=== PATIENT | female | born 1945 | race Caucasian/White ===

== ENCOUNTER 2018-04-22 11:53 | Outpatient (CLI) | payer MEDICARE, BC, SELFPAY ==
--- NOTE | 2018-04-22 09:27 | DI.RAD_ITS ---
SYMPTOM/DIAGNOSIS: FELL ON BUTTOCK, PAIN,S30.OXXA SACRUM AND COCCYX No fracture is identified. The SI joints and pubic symphysis appear intact. IMPRESSION: Negative sacrum and coccyx.
== END 2018-04-22 12:13 ==
PROVIDERS: PCP Nurse Practitioner Family; Visit Provider Family Medicine
DX: M53.3 Sacrococcygeal disorders, not elsewhere classified (principal); S30.0XXA Contusion of lower back and pelvis, initial encounter
CPT/HCPCS: 72220

== ENCOUNTER 2018-05-03 01:55 | Outpatient (CLI) | payer MEDICARE, BC, SELFPAY ==
[2018-05-03 09:57] LABS: ALT 27 U/L (12-78); AST 16 U/L (15-37); Albumin 4.4 g/dL (3.4-5.0); Alkaline Phosphatase 130 U/L (46-116); Anion Gap 10.6 mmol/L (3-11); BUN 19 mg/dL (7-18); CO2 28.4 mmol/L (21.0-32.0); Calcium 9.8 mg/dL (8.5-10.1); Chloride 99 mmol/L (98-107); Cholesterol 271 mg/dL (50-200); Glucose 91 mg/dL (70-100); HDL Cholesterol 63 mg/dL (40-60); LDL CHOLESTEROL 176 mg/dL (<100); Potassium 4.5 mmol/L (3.5-5.1); Sodium 138 mmol/L (136-145); Total Protein 8.2 g/dL (6.4-8.2); Triglyceride 151 mg/dL (30-150)
[2018-05-03 10:52] LABS: Hemoglobin A1C 5.9 % (4.5-6.2)
== END 2018-05-03 02:15 ==
PROVIDERS: PCP Nurse Practitioner Family; Visit Provider Nurse Practitioner Family
DX: E78.5 Hyperlipidemia, unspecified (principal); R79.89 Other specified abnormal findings of blood chemistry
CPT/HCPCS: 36415; 80053; 80061; 83721; 83036

== ENCOUNTER 2018-06-02 00:27 | Outpatient (CLI) | payer MEDICARE, BC, SELFPAY ==
--- NOTE | 2018-06-02 07:30 | DI.US_ITS ---
SYMPTOM/DIAGNOSIS: SCREENING FOR AAA, Z13.6, QUESTIONABLE ABD BRUIT AORTA ULTRASOUND: The proximal aorta measures 2.1 by 2.2 cm. The mid abdominal aorta measures 2.3 by 2.3 cm. The distal abdominal aorta measures 1.5 by 2.1 cm. The right iliac measures 1.1 by 1 cm. The left iliac measures 1.3 by 0.9 cm. IMPRESSION: No evidence of an abdominal aortic aneurysm.
== END 2018-06-02 00:47 ==
PROVIDERS: PCP Nurse Practitioner Family; Visit Provider Nurse Practitioner Family
DX: Z13.6 Encounter for screening for cardiovascular disorders (principal)
CPT/HCPCS: 76706

== ENCOUNTER 2019-07-07 10:37 | Observation (INO) | payer MEDICARE, BC, SELFPAY ==
[2019-07-07] VITALS (34 sets, daily range): BP systolic 152–191; BP diastolic 68–91; PULSE 66–96; RESP 12–23; TEMP 36–37.1; O2SAT 97–100
--- NOTE | 2019-07-07 11:15 | DI.RAD_ITS ---
EXAM: XR PORTABLE CHEST AP CLINICAL HISTORY: palpitations, dizzy TECHNIQUE: 2D digital imaging was performed. COMPARISON: No exams were available for comparison FINDINGS: LUNGS: Clear. No pleural abnormality seen. HEART: Normal. MEDIASTINUM: Normal. OTHER FINDINGS: Degenerative changes in the spine. IMPRESSION: No acute pulmonary findings. DATA REPOSITORY: RADIATION DOSE DELIVERED:
[2019-07-07 11:27] LABS: Abs Immature Grans 0.01 k/cumm (0.0-0.09); Absolute Basophil Count 0.03 k/cumm (0.0-0.2); Absolute Eosinophil Count 0.06 k/cumm (0.0-0.7); Absolute Lymphocyte Count 2.15 k/cumm (1.2-3.4); Absolute Monocyte Count 0.56 k/cumm (0.11-0.7); Absolute Neutrophil Count 2.11 k/cumm (1.2-6.7); Basophils % 0.6; Eosinophils % 1.2; HCT 41.1 % (36.0-46.0); HGB 14.2 g/dL (12.0-15.5); Immature Grans % 0.2 %; Lymphocytes % 43.7; Mean Corp. HGB Concentration 34.5 g/dL (32.0-36.0); Mean Corpuscular Hemoglobin 30.7 pg (27.0-33.0); Monocytes % 11.4; Neutrophils % 42.9; Platelet Count 300 x1000/uL (130-400); RBC 4.62 m/cumm (4.00-5.20); RBC Distribution Width 12.2 % (11.7-14.6); White Blood Cell Count 4.92 k/cumm (4.4-10.8)
[2019-07-07] MEDS: Lactated Ringers 500 ML IV (11:41)
[2019-07-07 11:46] LABS: ALT 27 U/L (14-59); AST 19 U/L (15-37); Albumin 4.4 g/dL (3.4-5.0); Alkaline Phosphatase 120 U/L (46-116); Anion Gap 7.4 mmol/L (3-11); BUN 14 mg/dL (7-18); CO2 26.6 mmol/L (21.0-32.0); CREATININE 0.78 mg/dL (0.55-1.02); Calcium 9.6 mg/dL (8.5-10.1); Chloride 101 mmol/L (98-107); Glucose 114 mg/dL (74-106); Magnesium 2.1 mg/dL (1.8-2.4); Potassium 3.6 mmol/L (3.5-5.1); Sodium 135 mmol/L (136-145); TSH (W/Ref FT4) 2.69 uIU/mL (0.36-3.74); Total Protein 8.2 g/dL (6.4-8.2)
[2019-07-07 11:51] LABS: Troponin I < 0.05 ng/mL (<0.06)
[2019-07-07 11:59] LABS: D-Dimer 359 ng/mlFEU (<500)
--- NOTE | 2019-07-07 12:29 | ED.GENADUL_ITS ---
Discharge Plan Disposition Patient Disposition: [facility] INPATIENT Condition: Serious Discharge Details Chief Complaint: Chest Pain Clinical Impression: Hypertension, Anxiety, Palpitations Primary Care Provider: Gifty Zabala ED Provider: Avelino Shah Home Meds and New Rx's Prescriptions: No Action varicella-zoster gE-AS01B (PF) 50 mcg/0.5 mL suspension for reconstitution 0.5 ml IM ONCE Qty: 1 RF: 0 red yeast rice 600 mg capsule 600 mg PO DAILY RF: 0 meclizine [Motion Relief (meclizine)] 25 mg tablet 25 mg PO DAILY PRNRF: 0 coenzyme Q10 100 mg capsule 100 mg PO DAILY RF: 0 ivermectin [Soolantra] 30 GM cream 1 applic Topical HS Qty: 30 RF: 0 Medical Decision Making 74-year-old female with history of hyperlipidemia presents with palpitations that occurred earlier today and now resolved, hypertensive, saturating well in no respiratory distress. Patient also had episode yesterday of severe lightheadedness with associated nausea that lasted approximately 2 hours. Concern for intermittent arrhythmia. Screening ECG was reviewed and interpreted by me: Normal sinus rhythm 80 bpm, normal axis, subtle ST depressions are noted lead V3 to V6. No signs of hypertrophic cardiomyopathy, hokum, or WPW. I was able to obtain prior ECG from 08/21/[address] segments. Screening labs reviewed and nondiagnostic. A d-dimer was sent as patient is low risk by Wells criteria and noted to be normal. Screening chest x-ray was reviewed and interpreted by radiology: Normal. 13:11 I called and spoke with Dr. Meadows and discussed ED presentation and course including review of diagnostics and my concern for potential arrhythmia. She will admit the patient to telemetry. Care transition to Dr. Meadows. --Patient's son called back the emergency department - he raises concern for potential anxiety attack and related to life stressors including the fact that he is moving to [place]. HPI General Mode of arrival: ambulatory . Date/Time Provider Initiated Documentation: 07/07/19 10:50 . Limitations to Documentation: no limitations . Information obtained by: patient . HPI Narrative: 74-year-old female with history of hyperlipidemia presents with chief complaint of palpitations. Patient notes palpitations started today suddenly around 9:50 AM and lasted approximately 30 minutes. Palpitations were severe, described as strong pounding, these occurred at rest, no modifiers. Palpitations improved after approximately 30 minutes and she does not currently have palpitations although she continues to feel somewhat anxious. She notes that she checked her blood pressure during episode of blood pressure was elevated with a systolic in the 180s. Her blood pressures typically in normal range. Patient also notes yesterday around 230 she had sudden onset of dizziness, lightheadedness, and nausea. This episode occurred at rest and lasted approximately 2 hours then resolved. She notes that she felt off last night. She currently is no chest pain. No shortness of breath. No leg swelling. She has had some ongoing intermittent discomfort in her left posterior calf. She does not currently have pain in her calf. Related Data Home Medications Medication Instructions Recorded Confirmed ivermectin [Soolantra] 1 applic TOPICAL HS #30 gm 04/11/15 07/07/19 varicella-zoster gE-AS01B (PF) 50 0.5 ml IM ONCE #1 each 05/20/18 07/07/19 mcg/0.5 mL IM susp, kit red yeast rice 600 mg capsule 600 mg PO DAILY 06/06/18 07/07/19 meclizine 25 mg tablet 25 mg PO DAILY PRN 06/29/18 07/07/19 coenzyme Q10 100 mg capsule 100 mg PO DAILY 07/07/18 07/07/19 Previous Rx's Medication Instructions Recorded varicella-zoster gE-AS01B (PF) 50 0.5 ml IM ONCE #1 each 05/20/18 mcg/0.5 mL IM susp, kit Allergies Allergy/AdvReac Type Severity Reaction Status Date / Time Penicillins Allergy Unknown Verified 07/07/19 10:49 scallops Allergy Unknown Verified 07/07/19 10:49 Sulfa (Sulfonamide Allergy Unknown HIVES Verified 07/07/19 10:49 Antibiotics) oxycodone AdvReac Severe GI UPSET Verified 07/07/19 10:49 General Stated Complaint: Chest Pain INGA: 3 Review of Systems All systems reviewed & are unremarkable except as noted in HPI and below Constitutional Constitutional: Denies fever(s) Cardiovascular Cardiovascular: Reports as per HPI Respiratory Respiratory: Denies cough [facility] Medical History BPPV (benign paroxysmal positional vertigo) (Acute) Hyperlipidemia (Chronic) Impingement syndrome, shoulder, left (Resolved) Panic attacks (Inactive 04/11/15) Pelvic prolapse (Inactive) Prediabetes (Chronic ~04/2018) Raynauds syndrome (Inactive 03/30/13) Rosacea (Inactive) Tubular adenoma of colon (Inactive ~2012) Surgical History Appendectomy (Inactive ~1962) History of pelvic surgery (Inactive ~1962) Presacral Neurectomy for dysmenorrhea as a teenager S/P arthroscopy of left shoulder (Inactive 09/19/02) S/P lumpectomy, right breast (Inactive 09/18/98) S/P SARTHAK-BSO (total abdominal hysterectomy and bilateral salpingo-oophorectomy) (Inactive 08/16/90) For menorrhagia S/P tonsillectomy (Inactive ~1949) Family History Mother , at 86 Lupus Rheumatoid arthritis Essential hypertension Hyperlipidemia Type 2 diabetes mellitus Heart disease Father , at 84 Heart disease Stroke Prostate cancer Sister Heart disease Son No problems noted. Daughter , at age 46 of brain aneurysm Essential hypertension Hyperlipidemia MS (multiple sclerosis) Brain aneurysm Maternal Grandfather , at 82 Hyperlipidemia Essential hypertension Maternal Grandmother , at 44 No problems noted. Paternal Grandfather , at 84 Type 2 diabetes mellitus Essential hypertension Hyperlipidemia Paternal Grandmother , at 86 Heart disease Essential hypertension Social History Smoking/Tobacco Use Status: Never Second Hand Exposure: Yes Alcohol Intake: current Alcohol Intake frequency: a few times a week Alcohol type: beer and wine Drug use: Never Substance use type: does not use Caregiver/Support person: No Household members: spouse Housing: house Communication Needs: None Do you need help understanding health information?: Rarely Pets and animals: Yes Pets and animals: cat(s) Sexually active: Yes Do you think of yourself as: straight/heterosexual Current gender identity: female What is your relationship status?: How often do you talk on the phone with friends or family?: twice per week How often do you get together with friends or relatives?: once per week How often do you attend bahai or adventist services?: 4 or more times per year Do you belong to any clubs or organized social groups?: yes Panel score (0-1 are the most socially isolated patients): 4 What type of physical activity do you participate in: other Details: Senior Exercise group Duration: 45-60 minutes/day Frequency: 1-2 times per week Vita/Christianity: Mormonism Special vita needs: No Seatbelt use: always Helmet use: Yes Helmet use: always Drive intox or ride w/intox jeep driver: No Do you feel safe in your relationship?: Yes Female Reproductive History Menstrual Menopause type: surgical History History 2 Para 2 Hx # Term Pregnancies Multiple births Hx # Pregnancies Ectopic pregnancies AB induced Hx Number of Living Children 1 AB spontaneous Exam Const General: cooperative HENMT Mouth: moist mucous membranes Eyes Conjunctivae: normal conjunctivae Sclera: normal sclerae Neck Neck: trachea midline and supple Resp Auscultation: clear to auscultation bilaterally, no rales, no rhonchi and no wheezes Cardio Jugular venous pressure: no JVD Rate: regular rate and not tachycardic Rhythm: regular rhythm GI Palpation: soft, not firm, no guarding, no masses, not rigid and nontender Skin General skin exam: no rashes or lesions noted Neuro General: patient alert, patient awake, patient oriented x3 and tone normal Extrem General: no edema Psych Appearance: grossly normal Mental Status: mental status grossly normal Speech and Movement: speech and movement normal Course Vital Signs Vital signs: Vital Signs Temperature 37.1 C 07/07/19 10:43 Pulse 83 07/07/19 10:43 Blood Pressure 191/90 H 07/07/19 10:43 Pulse Oximetry 99 07/07/19 10:43 Temperature 37.1 C 07/07/19 10:43 Temperature Source Temporal Artery Scan 07/07/19 10:43 Pulse 83 07/07/19 10:43 Respiratory Rate 18 07/07/19 11:08 Respiratory Effort Non-Labored 07/07/19 11:08 Respiratory Depth Normal 07/07/19 11:08 Respiratory Pattern Normal 07/07/19 11:08 Blood Pressure 191/90 H 07/07/19 10:43 Blood Pressure Position Supine 07/07/19 10:43 Pulse Oximetry 99 07/07/19 10:43 Oxygen Delivery Method Room Air 07/07/19 10:43 Oxygen Flow Rate 0 07/07/19 10:43 Pain Level 2 07/07/19 10:43 Lab/Test Results Lab/Test Results: Laboratory Tests Range/Units 07/07/19 07/07/19 07/07/19 11:00 11:00 11:00 WBC (4.4-10.8) k/cumm 4.92 RBC (4.00-5.20) m/cumm 4.62 Hgb (12.0-15.5) g/dL 14.2 Hct (36.0-46.0) % 41.1 MCV (80-95) fL 89.0 MCH (27.0-33.0) pg 30.7 MCHC (32.0-36.0) g/dL 34.5 RDW (11.7-14.6) % 12.2 Plt Count (130-400) x1000/uL 300 MPV (8.0-11.0) fL 10.0 Immature Gran % % 0.2 Neutrophils % 42.9 Lymphocytes % 43.7 Monocytes % 11.4 Eosinophils % 1.2 Basophils % 0.6 Absolute Neutrophils (1.2-6.7) k/cumm 2.11 Absolute Lymphocytes (1.2-3.4) k/cumm 2.15 Absolute Monocytes (0.11-0.7) k/cumm 0.56 Absolute Eosinophils (0.0-0.7) k/cumm 0.06 Absolute Basophils (0.0-0.2) k/cumm 0.03 D-Dimer (<500) ng/mlFEU 359 Sodium (136-145) mmol/L 135 L Potassium (3.5-5.1) mmol/L 3.6 Chloride (98-107) mmol/L 101 Carbon Dioxide (21.0-32.0) mmol/L 26.6 Anion Gap (3-11) mmol/L 7.4 BUN (7-18) mg/dL 14 Creatinine (0.55-1.02) mg/dL 0.78 Estimated GFR/1.73 m2 (mL/min/1.73m2) >= 60.00 Glucose (74-106) mg/dL 114 H Calcium (8.5-10.1) mg/dL 9.6 Magnesium (1.8-2.4) mg/dL 2.1 Total Bilirubin (0.2-1.0) mg/dL 1.0 AST (15-37) U/L 19 ALT (14-59) U/L 27 Alkaline Phosphatase (46-116) U/L 120 H Troponin I (<0.06) ng/mL < 0.05 Total Protein (6.4-8.2) g/dL 8.2 Albumin (3.4-5.0) g/dL 4.4 TSH (0.36-3.74) uIU/mL 2.69
[2019-07-07] MEDS: Normal Saline 1,000 ML 125 ML IV ×2 (12:48→21:05)
--- NOTE | 2019-07-07 13:37 | PDOC.ERCMIN ---
- If Service Date Differs Date of service: 07/07/19 Time of Service: 13:38 Care Management Initial Assess REASON FOR HOSPITALIZATION:: Hypertension, anxiety, and palpitations. PAST MEDICAL HISTORY/PAST SURGICAL HISTORY:: Medical History: BPPV (benign paroxysmal positional vertigo), Hyperlipidemia, Impingement syndrome, shoulder, left, Panic attacks, Pelvic prolapse, Prediabetes, Raynauds syndrome, Rosacea, and Tubular adenoma of colon. Surgical History: Appendectomy, History of pelvic surgery - Presacral Neurectomy for dysmenorrhea as a teenager, S/P arthroscopy of left shoulder,. S/P lumpectomy, right breast, S/P SARTHAK-BSO (total abdominal hysterectomy and bilateral salpingo-oophorectomy) - For menorrhagia, and S/P tonsillectomy. PREVIOUS FUNCTIONAL STATUS/SOCIAL/FAMILY SUPPORTS:: Lorri is a pleasant 74 year old female who resides in [place] with Richi, her of 53 years. 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 Their son, Richi Martin, is a source of support for the couple, but he resides in [place], [place] (tel. # [phone]). Lorri shares her was diagnosed with parkinsons in July of last year. She goes on to say the two of them are enjoying their usp years together. Lorri drives and is independent at baseline. CURRENT FUNCTIONAL STATUS:: Lorri is lying in bed in the emergency room when CM meets with her today. She is pleasant and easily engages in conversation. She expresses some concerns over her being home alone. A plan is made for her to outreach to a neighbor who can look in on him while she is at the hospital. CM will continue to follow. ADVANCE DIRECTIVES:: On file; Richi Mcdonald Sr is listed as agent. Has patient been provided with information about the portal?: Yes Did the patient sign up for the portal?: Yes (Previously enrolled) CODE STATUS:: Full Code INSURANCE COVERAGE / FINANCIAL ISSUES:: BCBS and Medicare. CURRENT HOME/COMMUNITY SERVICES/EQUIPMENT:: None. Lorri is independent at baseline. PRIMARY CARE PHYSICIAN:: EVELIN Iniguez ([facility]) POTENTIAL DISCHARGE NEEDS:: Follow up appointment with PCP. PATIENT/FAMILY EDUCATION NEEDS:: Discharge instructions, limitations, follow-up plan, including Ask Me Three and self-management. ANTICIPATED BARRIERS TO DISCHARGE:: No anticipated barriers at this time. TRANSPORTATION:: Via private vehicle with family. PLAN:: Anticipate Lorri will discharge home with no new services when medically cleared by provider. She will follow-up with her plan of care as prescribed. Her will transport her home via private vehicle when ready. CM will continue to follow.
[2019-07-07] MEDS: Enoxaparin 40 MG/0.4 ML SYR SC (15:08)
--- NOTE | 2019-07-07 15:34 | HPE_ITS ---
Date of service: 07/07/19 Time of Service: 15:34 Assessment and Plan Assessment and plan (1) Palpitations: Status: Acute Assessment and plan: refer to observation on telemetry, repeat troponin. unlikely ACS, no dysrhythmia noted while in ED. no electrolyte abnormality. has history of anxiety and has multiple current stressors. (2) Hypertension: Status: Chronic Assessment and plan: will monitor at this time. case discussed with Dr Meadows who is in agreement with plan History of Present Illness History of Present Illness Chief Complaint: palpitations Narrative: This is a 74-year-old female with history of hyperlipidemia presents with chief complaint of palpitations. Patient notes palpitations started today suddenly around 9:50 AM and lasted approximately 30 minutes. Palpitations were severe, described as strong pounding, these occurred at rest, no modifiers. Palpitations improved after approximately 30 minutes and she does not currently have palpitations although she continues to feel somewhat anxious. She notes that she checked her blood pressure during episode of blood pressure was elevated with a systolic in the 180s. She also reports yesterday around 230 she had sudden onset of dizziness, lightheadedness, and nausea. This episode occurred at rest and lasted approximately 2 hours then resolved. She notes that she felt off last night. She currently is no chest pain. No shortness of breath. No leg swelling. She has had some ongoing intermittent discomfort in her left posterior calf. She does not currently have pain in her calf. work up in the ED showed EKG in sinus rhythm with no evidence of ischemia, negative labs including troponin, d-dimer and electrolytes and CXR. she will be referred to observation on telemetry to trend troponin and cardiac monitoring. Review of Systems Constitutional Constitutional: Reports as per HPI, Reports system reviewed and no additional co mplaints, except as documented and Denies headache(s) ENT Ears, Nose, Mouth, and Throat: Denies vertigo and Denies headache(s) Cardiovascular Cardiovascular: Denies chest pain with activity, Reports rapid heart rate, Denies leg edema, Reports lightheadedness and Reports palpitations Respiratory Respiratory: Denies chest congestion and Denies cough Gastrointestinal Gastrointestinal: Denies abdominal pain, Denies nausea and Denies vomiting Musculoskeletal Musculoskeletal: Denies myalgias and Denies radiating pain into limb Neurologic Neurologic: Denies vertigo and Denies headache(s) Psychiatric Psychiatric: Reports anxiety Endocrine Endocrine: Reports palpitations PFSH Medical History BPPV (benign paroxysmal positional vertigo) (Acute) Hyperlipidemia (Chronic) Impingement syndrome, shoulder, left (Resolved) Panic attacks (Inactive 04/11/15) Pelvic prolapse (Inactive) Prediabetes (Chronic ~04/2018) Raynauds syndrome (Inactive 03/30/13) Rosacea (Inactive) Tubular adenoma of colon (Inactive ~2012) Surgical History Appendectomy (Inactive ~1962) History of pelvic surgery (Inactive ~1962) Presacral Neurectomy for dysmenorrhea as a teenager S/P arthroscopy of left shoulder (Inactive 09/19/02) S/P lumpectomy, right breast (Inactive 09/18/98) S/P SARTHAK-BSO (total abdominal hysterectomy and bilateral salpingo-oophorectomy) (Inactive 08/16/90) For menorrhagia S/P tonsillectomy (Inactive ~1949) Family History Mother , at 86 Lupus Rheumatoid arthritis Essential hypertension Hyperlipidemia Type 2 diabetes mellitus Heart disease Father , at 84 Heart disease Stroke Prostate cancer Sister Heart disease Son No problems noted. Daughter , at age 46 of brain aneurysm Essential hypertension Hyperlipidemia MS (multiple sclerosis) Brain aneurysm Maternal Grandfather , at 82 Hyperlipidemia Essential hypertension Maternal Grandmother , at 44 No problems noted. Paternal Grandfather , at 84 Type 2 diabetes mellitus Essential hypertension Hyperlipidemia Paternal Grandmother , at 86 Heart disease Essential hypertension Social History Smoking/Tobacco Use Status: Never Second Hand Exposure: Yes Alcohol Intake: current Alcohol Intake frequency: a few times a week Alcohol type: beer and wine Drug use: Never Substance use type: does not use Caregiver/Support person: No Household members: spouse Housing: house Communication Needs: None Do you need help understanding health information?: Rarely Pets and animals: Yes Pets and animals: cat(s) Sexually active: Yes Do you think of yourself as: straight/heterosexual Current gender identity: female What is your relationship status?: How often do you talk on the phone with friends or family?: twice per week How often do you get together with friends or relatives?: once per week How often do you attend gnosticist or anglican services?: 4 or more times per year Do you belong to any clubs or organized social groups?: yes Panel score (0-1 are the most socially isolated patients): 4 What type of physical activity do you participate in: other Details: Senior Exercise group Duration: 45-60 minutes/day Frequency: 1-2 times per week Vita/Quaker: Restorationism Special vita needs: No Seatbelt use: always Helmet use: Yes Helmet use: always Drive intox or ride w/intox local company truck driver: No Do you feel safe in your relationship?: Yes Female Reproductive History Menstrual Menopause type: surgical History History 2 Para 2 Hx # Term Pregnancies Multiple births Hx # Pregnancies Ectopic pregnancies AB induced Hx Number of Living Children 1 AB spontaneous Meds Home Medications and Allergies Home Medications Medication Instructions Recorded Confirmed Type ivermectin [Soolantra] 1 applic TOPICAL HS #30 gm 04/11/15 07/07/19 History varicella-zoster gE-AS01B (PF) 50 0.5 ml IM ONCE #1 each 05/20/18 07/07/19 Rx mcg/0.5 mL IM susp, kit red yeast rice 600 mg capsule 600 mg PO DAILY 06/06/18 07/07/19 History meclizine 25 mg tablet 25 mg PO DAILY PRN 06/29/18 07/07/19 History coenzyme Q10 100 mg capsule 100 mg PO DAILY 07/07/18 07/07/19 History Allergies Allergy/AdvReac Type Severity Reaction Status Date / Time Penicillins Allergy Unknown Verified 07/07/19 10:49 scallops Allergy Unknown Verified 07/07/19 10:49 Sulfa (Sulfonamide Allergy Unknown HIVES Verified 07/07/19 10:49 Antibiotics) oxycodone AdvReac Severe GI UPSET Verified 07/07/19 10:49 Exam Const General: cooperative, healthy appearing, comfortable, no acute distress and well developed Nutritional Appearance: average body habitus Orientation: alert, awake and oriented x3 HENMT Head: normal to inspection, normocephalic and atraumatic Mouth: oral mucosae normal Resp Effort & Inspection: normal respiratory effort Auscultation: clear to auscultation bilaterally Cardio Rate: regular rate Rhythm: regular rhythm Heart Sounds: no murmurs GI Inspection: normal to inspection Palpation: soft Auscultation: normal bowel sounds Skin General skin exam: no rashes or lesions noted Neuro General: patient alert, patient awake and patient oriented x3 Cranial Nerves: CN's II-XI intact bilaterally Extrem General: normal to inspection, full ROM and no pedal edema Psych Appearance: grossly normal Mental Status: mental status grossly normal Speech and Movement: speech and movement normal Mood: congruent mood Affect: normal affect Attitude: cooperative Thought Process: normal Thought Content: normal Insight: insight good Judgment: judgment good Results Labs Result diagrams: 07/07/19 11:00 07/07/19 11:00 Labs: Laboratory Results - last 24 hr 07/07/19 07/07/19 07/07/19 11:00 11:00 11:00 WBC 4.92 RBC 4.62 Hgb 14.2 Hct 41.1 MCV 89.0 MCH 30.7 MCHC 34.5 RDW 12.2 Plt Count 300 MPV 10.0 Immature Gran % 0.2 Neutrophils % 42.9 Lymphocytes % 43.7 Monocytes % 11.4 Eosinophils % 1.2 Basophils % 0.6 Absolute Neutrophils 2.11 Absolute Lymphocytes 2.15 Absolute Monocytes 0.56 Absolute Eosinophils 0.06 Absolute Basophils 0.03 D-Dimer 359 Sodium 135 L Potassium 3.6 Chloride 101 Carbon Dioxide 26.6 Anion Gap 7.4 BUN 14 Creatinine 0.78 Estimated GFR/1.73 m2 >= 60.00 Glucose 114 H Calcium 9.6 Magnesium 2.1 Total Bilirubin 1.0 AST 19 ALT 27 Alkaline Phosphatase 120 H Troponin I < 0.05 Total Protein 8.2 Albumin 4.4 TSH 2.69 Last Vital Signs Temp 36.0 C L 07/07/19 14:30 Pulse 66 07/07/19 14:30 Resp 18 07/07/19 14:30 BP 167/76 H 07/07/19 14:30 Pulse Ox 100 07/07/19 14:30 COVID-19 Screening In the past 14 days, have you traveled outside of [place] or [place]?: NO Had IN PERSON contact w/suspected or confirmed C-19 person: No
[2019-07-07 16:07] LABS: Troponin I < 0.05 ng/mL (<0.06)
[2019-07-07 22:33] LABS: Troponin I < 0.05 ng/mL (<0.06)
[2019-07-08 00:10] VITALS: BP 120/73; PULSE 73; RESP 16; TEMP 36.5; O2SAT 98
[2019-07-08 03:35] VITALS: BP 118/70; PULSE 65; RESP 17; TEMP 36.5; O2SAT 98
[2019-07-08] MEDS: Normal Saline 1,000 ML 125 ML IV (04:45)
[2019-07-08] MEDS: Normal Saline Flush 10 ML SYR IVP (04:45)
[2019-07-08 06:42] LABS: COVID-19 RT-PCR UVMMC Result Negative (Negative)
[2019-07-08 07:35] VITALS: BP 163/78; PULSE 65; RESP 15; TEMP 36.8; O2SAT 92
[2019-07-08 07:59] LABS: HCT 39.9 % (36.0-46.0); HGB 13.6 g/dL (12.0-15.5); Mean Corp. HGB Concentration 34.1 g/dL (32.0-36.0); Mean Corpuscular Hemoglobin 30.8 pg (27.0-33.0); Mean Corpuscular Volume 90.5 fL (80-95); Mean Platelet Volume 10.2 fL (8.0-11.0); Platelet Count 261 x1000/uL (130-400); RBC 4.41 m/cumm (4.00-5.20); RBC Distribution Width 12.3 % (11.7-14.6); White Blood Cell Count 4.06 k/cumm (4.4-10.8)
[2019-07-08 08:13] LABS: Anion Gap 6.2 mmol/L (3-11); BUN 12 mg/dL (7-18); CO2 26.8 mmol/L (21.0-32.0); CREATININE 0.73 mg/dL (0.55-1.02); Calcium 8.8 mg/dL (8.5-10.1); Calculated LDL 142 mg/dL (<100); Chloride 105 mmol/L (98-107); Cholesterol 214 mg/dL (<200); Glucose 95 mg/dL (74-106); HDL Cholesterol 62 mg/dL (40-60); Potassium 3.7 mmol/L (3.5-5.1); Sodium 138 mmol/L (136-145); Triglyceride 52 mg/dL (<150)
--- NOTE | 2019-07-08 09:26 | PDOC.CMDIS ---
LACE Index Scoring Tool - Questions: Length of Stay (in days): 1 Acuity (Admit via E.D.?): Yes Comorbidities: Any Tumor E.D. Visits: 1 - Answers: Total Score: 7 Risk of Readmission: Low Risk Care Management Discharge Reason for Hospitalization: Hypertension, anxiety, and palpitations. Discharge Plan: Lorri will discharge home when ready per MD. She will transport via private vehicle with family. She will follow up with her PCP and plan of care as prescribed, including instructions for heart monitor placed by RT per MD order. Patient/Family Education Needs: Review discharge instructions, discuss Ask Me Three.
--- NOTE | 2019-07-08 09:39 | W.PM.DS.N ---
Date of service: 07/08/19 Time of Service: 09:39 DS: Diagnosis Discharge Diagnosis (1) Palpitations: Status: Acute (2) Hypertension: Status: Chronic Discharge Plan Disposition Patient Disposition: HOME Condition: Good Discharge Details Chief Complaint: Chest Pain Clinical Impression: Hypertension, Anxiety, Palpitations Reason For Visit: PALPITATIONS,HYPERTENSIVE URGENCY Admit Date/Time: 07/07/19 13:01 Admit Provider: Sofy Meadows Attending Provider: Sofy Meadows Primary Care Provider: Gifty Zabala ED Provider: Avelino Shah Hospital Course Hospital Course: This is a 74-year-old female with history of hyperlipidemia presents with chief complaint of palpitations. Patient notes palpitations started today suddenly around 9:50 AM and lasted approximately 30 minutes. Palpitations were severe, described as strong pounding, these occurred at rest, no modifiers. Palpitations improved after approximately 30 minutes and she does not currently have palpitations although she continues to feel somewhat anxious. She notes that she checked her blood pressure during episode of blood pressure was elevated with a systolic in the 180s. She also reports yesterday around 230 she had sudden onset of dizziness, lightheadedness, and nausea. This episode occurred at rest and lasted approximately 2 hours then resolved. She notes that she felt off last night. She currently is no chest pain. No shortness of breath. No leg swelling. She has had some ongoing intermittent discomfort in her left posterior calf. She does not currently have pain in her calf. work up in the ED showed EKG in sinus rhythm with no evidence of ischemia, negative labs including troponin, d-dimer and electrolytes and CXR. she was referred to observation on telemetry to trend troponin and cardiac monitoring. overnight she rested comfortably. no further symptoms. remained in sinus rhythm with no ectopy. she will be discharged to home on an event monitor. she should follow up with pcp regarding further outpatient work up and monitor of blood pressure. Home Meds and New Rx's Prescriptions: Continued varicella-zoster [id number] (PF) 50 mcg/0.5 mL suspension for reconstitution 0.5 ml IM ONCE Qty: 1 RF: 0 red yeast rice 600 mg capsule 600 mg PO DAILY RF: 0 meclizine [Motion Relief (meclizine)] 25 mg tablet 25 mg PO DAILY PRNRF: 0 coenzyme Q10 100 mg capsule 100 mg PO DAILY RF: 0 ivermectin [Soolantra] 30 GM cream 1 applic Topical HS Qty: 30 RF: 0 Discharge Instructions Instructions: Heart Palpitations (DC), Hypertension (DC) Additional Instructions: monitor your blood pressure 3 times weekly and bring log to your follow up appointment. wear heart monitor as directed. Referrals: Gifty Zabala NP [Primary Care Provider] - Activity:: Activity as Tolerated Equipment/Supplies:: No Equipment Needed Diet:: Low Sodium Discharge Orders Discharge Orders: Discharge Order (Routine); Ordered 07/08/19 Ordered By: Francisca Romeo Other Ambulatory Orders: Cardiac Event Recorder (Outpt) (ONCE) Location: None Selected Ordered By: Francisca Romeo DS: Summary Status at Discharge Functional status at discharge: independent ambulation Overall status at discharge: patient is back to baseline Mental Status: mental status grossly normal Speech and Movement: speech and movement normal Mood: congruent mood Affect: normal affect Exam Const General: cooperative, healthy appearing, comfortable, no acute distress and well developed Nutritional Appearance: average body habitus Orientation: alert, awake and oriented x3 HENMT Head: normal to inspection, normocephalic and atraumatic Mouth: oral mucosae normal Resp Effort & Inspection: normal respiratory effort Auscultation: clear to auscultation bilaterally Cardio Rate: regular rate Rhythm: regular rhythm Heart Sounds: no murmurs GI Inspection: normal to inspection Palpation: soft Auscultation: normal bowel sounds Skin General skin exam: no rashes or lesions noted Neuro General: patient alert, patient awake and patient oriented x3 Cranial Nerves: CN's II-XI intact bilaterally Extrem General: normal to inspection, full ROM and no pedal edema Psych Appearance: grossly normal Mental Status: mental status grossly normal Speech and Movement: speech and movement normal Mood: congruent mood Affect: normal affect Attitude: cooperative Thought Process: normal Thought Content: normal Insight: insight good Judgment: judgment good DS: Data Vitals/I&O Vitals and I&O: Vital Signs Temperature 36.8 C 07/08/19 07:35 Temperature Source Tympanic 07/08/19 07:35 Pulse 65 07/08/19 07:35 Pulse Rhythm Regular 07/08/19 03:31 Pulse 73 07/07/19 13:31 Respiratory Rate 15 07/08/19 07:35 Respiratory Effort Non-Labored 07/08/19 03:31 Respiratory Depth Normal 07/08/19 03:31 Respiratory Pattern Normal 07/08/19 03:31 Blood Pressure 163/78 H 07/08/19 07:35 Blood Pressure Mean 97 07/07/19 13:31 Blood Pressure Position Supine 07/07/19 10:43 Pulse Oximetry 92 L 07/08/19 07:35 Oxygen Delivery Method Room Air 07/08/19 07:35 Oxygen Flow Rate 0 07/08/19 07:35 Pain Level 0 07/08/19 07:35 Comment 07/07/19 21:55 Intake & Output 07/07/19 07/07/19 07/08/19 11:59 23:59 11:59 Intake Total 3050 / 3050 1618.333 / 1618.333 Output Total 350 / 350 Balance 2700 / 2700 1618.333 / 1618.333 Weight 52.163 kg 52.163 kg 55.4 kg Intake: IV 1999 / 1999 968.333 / 968.333 Oral 1050 / 1050 650 / 650 Output: Urine 350 / 350 Other: Urine Color Yellow Yellow Urine Appearance Clear Clear Urine Odor Normal None Comment Per patient rate. Per patient rate Stool Size Moderate Stool Characteristics Soft Formed Voiding Methods Toilet Toilet Data Completed and Pending Labs on day of discharge: Labs from last 24 hours 07/08/19 07/08/19 07/08/19 06:55 06:55 06:55 WBC 4.06 L RBC 4.41 Hgb 13.6 Hct 39.9 MCV 90.5 MCH 30.8 MCHC 34.1 RDW 12.3 Plt Count 261 MPV 10.2 Immature Gran % Neutrophils % Lymphocytes % Monocytes % Eosinophils % Basophils % Absolute Neutrophils Absolute Lymphocytes Absolute Monocytes Absolute Eosinophils Absolute Basophils D-Dimer Sodium 138 Potassium 3.7 Chloride 105 Carbon Dioxide 26.8 Anion Gap 6.2 BUN 12 Creatinine 0.73 Estimated GFR/1.73 m2 >= 60.00 Glucose 95 Hemoglobin A1c Pending Calcium 8.8 Magnesium 2.0 Total Bilirubin AST ALT Alkaline Phosphatase Troponin I Total Protein Albumin Triglycerides 52 Total Cholesterol 214 H LDL Cholesterol, Calc 142 H HDL Cholesterol 62 TSH COVID-19 PCR Nasopharyn COVID-19 PCR Ref Test Perform Site 07/07/19 07/07/19 07/07/19 22:05 13:35 13:20 WBC RBC Hgb Hct MCV MCH MCHC RDW Plt Count MPV Immature Gran % Neutrophils % Lymphocytes % Monocytes % Eosinophils % Basophils % Absolute Neutrophils Absolute Lymphocytes Absolute Monocytes Absolute Eosinophils Absolute Basophils D-Dimer Sodium Potassium Chloride Carbon Dioxide Anion Gap BUN Creatinine Estimated GFR/1.73 m2 Glucose Hemoglobin A1c Calcium Magnesium Total Bilirubin AST ALT Alkaline Phosphatase Troponin I < 0.05 < 0.05 Total Protein Albumin Triglycerides Total Cholesterol LDL Cholesterol, Calc HDL Cholesterol TSH COVID-19 PCR Negative Nasopharyn COVID-19 PCR Not Applicable Ref Test [facility] 07/07/19 07/07/19 07/07/19 11:00 11:00 11:00 WBC 4.92 RBC 4.62 Hgb 14.2 Hct 41.1 MCV 89.0 MCH 30.7 MCHC 34.5 RDW 12.2 Plt Count 300 MPV 10.0 Immature Gran % 0.2 Neutrophils % 42.9 Lymphocytes % 43.7 Monocytes % 11.4 Eosinophils % 1.2 Basophils % 0.6 Absolute Neutrophils 2.11 Absolute Lymphocytes 2.15 Absolute Monocytes 0.56 Absolute Eosinophils 0.06 Absolute Basophils 0.03 D-Dimer 359 Sodium 135 L Potassium 3.6 Chloride 101 Carbon Dioxide 26.6 Anion Gap 7.4 BUN 14 Creatinine 0.78 Estimated GFR/1.73 m2 >= 60.00 Glucose 114 H Hemoglobin A1c Calcium 9.6 Magnesium 2.1 Total Bilirubin 1.0 AST 19 ALT 27 Alkaline Phosphatase 120 H Troponin I < 0.05 Total Protein 8.2 Albumin 4.4 Triglycerides Total Cholesterol LDL Cholesterol, Calc HDL Cholesterol TSH 2.69 COVID-19 PCR Nasopharyn COVID-19 PCR Ref Test Perform Site [facility] Medical History BPPV (benign paroxysmal positional vertigo) (Acute) Hyperlipidemia (Chronic) Impingement syndrome, shoulder, left (Resolved) Panic attacks (Inactive 04/11/15) Pelvic prolapse (Inactive) Prediabetes (Chronic ~04/2018) Raynauds syndrome (Inactive 03/30/13) Rosacea (Inactive) Tubular adenoma of colon (Inactive ~2012) Surgical History Appendectomy (Inactive ~1962) History of pelvic surgery (Inactive ~1962) Presacral Neurectomy for dysmenorrhea as a teenager S/P arthroscopy of left shoulder (Inactive 09/19/02) S/P lumpectomy, right breast (Inactive 09/18/98) S/P SARTHAK-BSO (total abdominal hysterectomy and bilateral salpingo-oophorectomy) (Inactive 08/16/90) For menorrhagia S/P tonsillectomy (Inactive ~1950) Family History Mother , at 86 Lupus Rheumatoid arthritis Essential hypertension Hyperlipidemia Type 2 diabetes mellitus Heart disease Father , at 84 Heart disease Stroke Prostate cancer Sister Heart disease Son No problems noted. Daughter , at age 46 of brain aneurysm Essential hypertension Hyperlipidemia MS (multiple sclerosis) Brain aneurysm Maternal Grandfather , at 82 Hyperlipidemia Essential hypertension Maternal Grandmother , at 44 No problems noted. Paternal Grandfather , at 84 Type 2 diabetes mellitus Essential hypertension Hyperlipidemia Paternal Grandmother , at 86 Heart disease Essential hypertension Social History Smoking/Tobacco Use Status: Never Second Hand Exposure: Yes Alcohol Intake: current Alcohol Intake frequency: a few times a week Alcohol type: beer and wine Drug use: Never Substance use type: does not use Caregiver/Support person: No Household members: spouse Housing: house Communication Needs: None Do you need help understanding health information?: Rarely Pets and animals: Yes Pets and animals: cat(s) Sexually active: Yes Do you think of yourself as: straight/heterosexual Current gender identity: female What is your relationship status?: How often do you talk on the phone with friends or family?: twice per week How often do you get together with friends or relatives?: once per week How often do you attend religion or mosque services?: 4 or more times per year Do you belong to any clubs or organized social groups?: yes Panel score (0-1 are the most socially isolated patients): 4 What type of physical activity do you participate in: other Details: Senior Exercise group Duration: 45-60 minutes/day Frequency: 1-2 times per week Vita/Yazidi: Amish Special vita needs: No Seatbelt use: always Helmet use: Yes Helmet use: always Drive intox or ride w/intox 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
[2019-07-08 09:43] LABS: Hemoglobin A1C 5.7 % (3.8-5.6)
[2019-07-08 11:00] VITALS: BP 157/83; PULSE 74; RESP 16; TEMP 36.5; O2SAT 98
[2019-07-08 11:13] VITALS: PULSE 77
--- NOTE | 2019-08-10 08:49 | W.CARDEVENT ---
Date of service: 08/10/19 Time of Service: 08:49 Cardiac Event Recorder Cardiac Event Note: This is a 30-day event recorder ordered for indication of palpitations. ?The patient was in normal sinus rhythm for the entirety of the recording with an average heart rate of 80 bpm. ?There were no episodes of atrial fibrillation and no other significant arrhythmias or pauses greater than 3 seconds ?There were 21 patient triggered events which were all associated with sinus rhythm. ?There was one auto triggered event which was associated with a short run of premature atrial contractions.
--- NOTE | 2019-08-10 08:51 | W.HOLTRPT ---
Date of service: 08/10/19 Time of Service: 08:53
== END 2019-07-08 11:58 | disposition home or self-care (01) ==
LOC: ER 13:36 → MS 13:57
PROVIDERS: Admitting Provider Internal Medicine; Emergency Provider Student in an Organized Health Care Education/Training Program; PCP Nurse Practitioner Family; Visit Provider Internal Medicine
DX: R00.2 Palpitations (principal); I10 Essential (primary) hypertension; F41.9 Anxiety disorder, unspecified
CPT/HCPCS: 36415; 80048; 80053; 80061; 85027; 93005; 93270; 96360; 96361; 99217; 99219; 99285; J1650; U0003; 71045; 83036; 83735; 84443; 84484; 85025; 85379; 93010; G0378

== ENCOUNTER 2019-10-27 10:09 | Emergency (ER) | payer MEDICARE, BC, SELFPAY ==
--- NOTE | 2019-10-27 10:00 | RT.EKG_ITS ---
APPROVED REPORT Exam: Resting ECG Patient Location: E HR:66 bpm ECG Measurements Heart Rate 66 AXIS NV 145 P 18 QRSd 81 QRS -1 QT 392 T 59 QTc 410 Conclusion Sinus rhythm...normal P axis, V-rate 60- 99
[2019-10-27 10:17] VITALS: RESP 18
[2019-10-27 10:44] LABS: Abs Immature Grans 0.01 10^3/uL (0.0-0.06); Absolute Basophil Count 0.04 10^3/uL (0.0-0.2); Absolute Eosinophil Count 0.07 10^3/uL (0.0-0.7); Absolute Lymphocyte Count 1.89 10^3/uL (1.2-3.4); Absolute Monocyte Count 0.55 10^3/uL (0.1-0.8); Absolute Neutrophil Count 2.22 10^3/uL (1.2-6.7); Basophils % 0.8; Eosinophils % 1.5; HGB 13.7 g/dL (11.2-15.7); Immature Grans % 0.2; Lymphocytes % 39.5; MCHC 33.4 % (32.0-36.0); MCV 89.7 fL (80-95); MPV 9.4 fL (8.0-11.0); Monocytes % 11.5; Neutrophils % 46.5; Nucleated RBC 0 %; Platelet Count 268 10^3/uL (130-400); RBC 4.57 10^6/uL (3.93-5.22); RDW 11.9 % (11.7-14.6); RDW-SD 39.1 fL; WBC 4.78 10^3/uL (4.4-10.8)
--- NOTE | 2019-10-27 10:44 | ED.GENADUL_ITS ---
Discharge Plan Disposition Patient Disposition: HOME Condition: Good Discharge Details Clinical Impression: Vasovagal near syncope Primary Care Provider: Gifty Zabala ED Provider: Molly Martinez Home Meds and New Rx's Prescriptions: No Action coenzyme Q10 100 mg capsule 100 mg PO DAILY RF: 0 ivermectin [Soolantra] 30 GM cream 1 applic Topical HS Qty: 30 RF: 0 Discharge Instructions Instructions: Syncope (ED) Additional Instructions: Drink plenty of fluids and get plenty of rest. Follow-up with your primary care doctor in 1 week. Return to the emergency department with any worsening or new concerning symptoms. Discharge Data Discharge Date/Time-TO BE ENTERED AT DEPARTURE: 10/27/19 12:20 Discharge Physician: Molly Martinez Medical Decision Making 1030 -- 74yo female presents after near syncopal episode while watching her have suture removal at the surgery office across the street just prior to arrival. BP mildly hypertensive. Vitals within normal limits. EKG notes a rate of 66, sinus with no acute ST-T wave ischemic changes. No focal deficits on exam. She appears in no acute distress. Suspect most likely vasovagal near syncope. History and presentation not consistent with ACS or CVA. Will check screening labs, chest x-ray and reassess. 1145 --labs and imaging reviewed and unremarkable. Patient reassessed and she still remains asymptomatic. She feels good to go home. Appears consistent with vasovagal syncope. Patient had a cardiac event monitor in August 2019 which was unremarkable for any acute events. Advised to follow up with the primary care doctor for re-evaluation. Usual and customary return precautions given prior to discharge. Medical Records Medical records reviewed: Yes I reviewed the patient's medical records. Imaging Data Radiologic Study: Radiologist's impression: XR PORTABLE CHEST AP CLINICAL HISTORY: near syncope, r/o acute disease. TECHNIQUE: 2D digital imaging was performed. COMPARISON: CR XR PORTABLE CHEST AP from 07/07/2019 FINDINGS: LUNGS: Clear. No pleural abnormality seen. HEART: Normal. MEDIASTINUM: Normal. OTHER FINDINGS: None. IMPRESSION: No acute pulmonary findings. Lab Data Lab results reviewed: Yes I reviewed the patient's lab results. Labs: Laboratory Tests Range/Units 10/27/19 10/27/19 10/27/19 10:35 10:35 10:35 WBC (4.4-10.8) 10^3/uL 4.78 RBC (3.93-5.22) 10^6/uL 4.57 Hgb (11.2-15.7) g/dL 13.7 Hct (36.0-46.0) % 41.0 MCV (80-95) fL 89.7 MCH (27.0-33.0) pg 30.0 MCHC (32.0-36.0) % 33.4 RDW (11.7-14.6) % 11.9 Plt Count (130-400) 10^3/uL 268 MPV (8.0-11.0) fL 9.4 Immature Gran % 0.2 Neutrophils % 46.5 Lymphocytes % 39.5 Monocytes % 11.5 Eosinophils % 1.5 Basophils % 0.8 Nucleated RBC % % 0 Absolute Neutrophils (1.2-6.7) 10^3/uL 2.22 Absolute Lymphocytes (1.2-3.4) 10^3/uL 1.89 Absolute Monocytes (0.1-0.8) 10^3/uL 0.55 Absolute Eosinophils (0.0-0.7) 10^3/uL 0.07 Absolute Basophils (0.0-0.2) 10^3/uL 0.04 PT (9.3-11.0) sec 9.9 INR (0.9-1.1) 1.0 APTT (21.0-31.4) sec 23.2 Sodium (136-145) mmol/L 137 Potassium (3.5-5.1) mmol/L 3.8 Chloride (98-107) mmol/L 102 Carbon Dioxide (21.0-32.0) mmol/L 26.5 Anion Gap (3-11) mmol/L 8.5 BUN (7-18) mg/dL 16 Creatinine (0.55-1.02) mg/dL 0.80 Estimated GFR/1.73 m2 (mL/min/1.73m2) >= 60.00 Glucose (74-106) mg/dL 107 H Calcium (8.5-10.1) mg/dL 9.2 Magnesium (1.8-2.4) mg/dL 2.1 Total Bilirubin (0.2-1.0) mg/dL 0.9 AST (15-37) U/L 26 ALT (14-59) U/L 48 Alkaline Phosphatase (46-116) U/L 126 H Troponin I (<0.06) ng/mL < 0.05 Total Protein (6.4-8.2) g/dL 7.9 Albumin (3.4-5.0) g/dL 4.1 ECG Data Attestation: I personally reviewed and interpreted this ECG (s) as follows: Interpretation: Rate of 66, sinus, no acute ST elevation or depression. MO 145. QRS 81. QTc 410. HPI General Mode of arrival: ambulatory . Date/Time Provider Initiated Documentation: 10/27/19 10:44 . Limitations to Documentation: no limitations . Information obtained by: patient . HPI Narrative: Patient is a 74-year-old female with a history of BPPV, anxiety, Raynaud's syndrome and hyperlipidemia presents after near syncope episode at surgery office across the street when watching her having suture removal. Patient states she was at Dr. Ham's office with her who has mild dementia when she was watching the sutures being removed from a melanoma resection from his left arm and suddenly began feeling warm and flushed. Patient states she then stood to take off her jacket and became lightheaded and was eased down to the ground and her feet were placed upward and an ice pack to her head. She states she never fully passed out and that her symptoms resolved with rest. She denies any symptoms at present. She denies any symptoms of headache, fever, chest pain, shortness of breath, palpitations, abdominal pain, nausea or vomiting when this occurred. She denies any recent illnesses states she felt fine prior to onset of this episode. Related Data Home Medications Medication Instructions Recorded Confirmed ivermectin [Soolantra] 1 applic TOPICAL HS #30 gm 04/11/15 10/27/19 coenzyme Q10 100 mg capsule 100 mg PO DAILY 07/07/18 10/27/19 Allergies Allergy/AdvReac Type Severity Reaction Status Date / Time Penicillins Allergy Unknown Verified 10/27/19 10:41 scallops Allergy Unknown Verified 10/27/19 10:41 Sulfa (Sulfonamide Allergy Unknown HIVES Verified 10/27/19 10:41 Antibiotics) oxycodone AdvReac Severe GI UPSET Verified 10/27/19 10:41 General Stated Complaint: Dizzy/Sync INGA: 3 Review of Systems All systems reviewed & are unremarkable except as noted in HPI and below Constitutional Constitutional: Reports as per HPI, Denies chills and Denies fever(s) Eyes Eyes: Denies blurry vision ENT Ears, Nose, Mouth, and Throat: Denies dizziness, Denies sore throat and Denies throat swelling Cardiovascular Cardiovascular: Denies chest pain and Denies dyspnea Respiratory Respiratory: Denies cough and Denies dyspnea Gastrointestinal Gastrointestinal: Denies abdominal pain, Denies diarrhea and Denies vomiting Genitourinary Genitourinary: Denies hematuria and Denies dysuria Musculoskeletal Musculoskeletal: Denies back pain and Denies numbness Integumentary/Breasts Skin/Breast: Denies lesions and Denies rash Neurologic Neurologic: Denies dizziness, Denies localized weakness and Denies numbness Allergic/Immunologic Allergic/Immunologic: Denies throat swelling [facility] Medical History (Updated 10/27/19 @ 11:59 by Molly Martinez DO) BPPV (benign paroxysmal positional vertigo) Generalized anxiety disorder Hyperlipidemia Panic attacks Pelvic prolapse Prediabetes Raynauds syndrome Rosacea Tubular adenoma of colon Surgical History History of pelvic surgery (~1962) Presacral Neurectomy for dysmenorrhea as a teenager S/P appendectomy (~1962) S/P arthroscopy of left shoulder (09/19/02) S/P lumpectomy, right breast (09/18/98) S/P SARTHAK-BSO (total abdominal hysterectomy and bilateral salpingo-oophorectomy) (08/16/90) For menorrhagia S/P tonsillectomy (~1950) Family History Mother , at 86 Lupus Rheumatoid arthritis Essential hypertension Hyperlipidemia Type 2 diabetes mellitus Heart disease Father , at 84 Heart disease Stroke Prostate cancer Sister Heart disease Son No problems noted. Daughter , at age 46 of brain aneurysm Essential hypertension Hyperlipidemia MS (multiple sclerosis) Brain aneurysm Maternal Grandfather , at 82 Hyperlipidemia Essential hypertension Maternal Grandmother , at 44 No problems noted. Paternal Grandfather , at 84 Type 2 diabetes mellitus Essential hypertension Hyperlipidemia Paternal Grandmother , at 86 Heart disease Essential hypertension Social History Smoking/Tobacco Use Status: Never Second Hand Exposure: Yes Alcohol Intake: current Alcohol Intake frequency: a few times a week Alcohol type: beer and wine Drug use: Never Substance use type: does not use Caregiver/Support person: No Household members: spouse Housing: house Communication Needs: None Do you need help understanding health information?: Rarely Pets and animals: Yes Pets and animals: cat(s) Sexually active: Yes Do you think of yourself as: straight/heterosexual Current gender identity: female What is your relationship status?: How often do you talk on the phone with friends or family?: twice per week How often do you get together with friends or relatives?: once per week How often do you attend gnosticism or jainism services?: 4 or more times per year Do you belong to any clubs or organized social groups?: yes Panel score (0-1 are the most socially isolated patients): 4 What type of physical activity do you participate in: other Details: Senior Exercise group Duration: 45-60 minutes/day Frequency: 1-2 times per week Vita/Rastafarian: Gnosticism Special vita needs: No Seatbelt use: always Helmet use: Yes Helmet use: always Drive intox or ride w/intox mechanic driver: No Do you feel safe at home: Yes Do you feel safe in your relationship?: Yes Female Reproductive History Menstrual Menopause type: surgical History History 2 2 Para 2 Hx # Term Pregnancies Multiple births Hx # Pregnancies Ectopic pregnancies AB induced Hx Number of Living Children 1 AB spontaneous Exam Const General: cooperative, healthy appearing and no acute distress HENMT Head: normal to inspection Face and sinus: normal facial exam Eyes General: appearance normal, both eyes and all related structures EOM: EOM intact bilaterally Neck Neck: normal visual inspection and No submandibular swelling Lymphatic: no lymphadenopathy noted Chest Chest: normal inspection of the chest and no tenderness Resp Effort & Inspection: normal respiratory effort and able to speak in complete sentences Auscultation: clear to auscultation bilaterally Cardio Rate: regular rate Rhythm: regular rhythm GI Inspection: normal to inspection Palpation: soft, not firm, not rigid and nontender Auscultation: normal bowel sounds Back/Spine/Pelvis Thoracic/Lumbar Spine: thoracic and lumbar spine normal to inspection Skin General skin exam: no rashes or lesions noted Neuro General: patient alert, patient awake and patient oriented x3 Cranial Nerves: CN's II-XI intact bilaterally Cognition: normal cognition Speech: speech normal Motor: muscle tone normal throughout and strength 5/5 throughout Sensory Exam: no sensory deficits noted Extrem General: normal to inspection, full ROM, capillary refill normal, no calf tenderness bilaterally and no edema Psych Appearance: grossly normal Mental Status: mental status grossly normal Speech and Movement: speech and movement normal Affect: normal affect Course Vital Signs Vital signs: Vital Signs Respiratory Rate 18 10/27/19 10:17 Respiratory Rate 18 10/27/19 10:17 Respiratory Effort Non-Labored 10/27/19 10:17 Respiratory Depth Normal 10/27/19 10:17 Respiratory Pattern Normal 10/27/19 10:17
[2019-10-27] MEDS: Normal Saline 500 ML IV (10:51)
[2019-10-27 11:02] LABS: PTT Activated 23.2 sec (21.0-31.4); Prothrombin Time 9.9 sec (9.3-11.0)
[2019-10-27 11:03] LABS: ALT 48 U/L (14-59); AST 26 U/L (15-37); Albumin 4.1 g/dL (3.4-5.0); Alkaline Phosphatase 126 U/L (46-116); Anion Gap 8.5 mmol/L (3-11); BUN 16 mg/dL (7-18); Bilirubin, Total 0.9 mg/dL (0.2-1.0); CO2 26.5 mmol/L (21.0-32.0); Calcium 9.2 mg/dL (8.5-10.1); Chloride 102 mmol/L (98-107); Glucose 107 mg/dL (74-106); Magnesium 2.1 mg/dL (1.8-2.4); Potassium 3.8 mmol/L (3.5-5.1); Sodium 137 mmol/L (136-145); Total Protein 7.9 g/dL (6.4-8.2); Troponin I < 0.05 ng/mL (<0.06)
--- NOTE | 2019-10-27 11:10 | DI.RAD_ITS ---
EXAM: XR PORTABLE CHEST AP CLINICAL HISTORY: near syncope, r/o acute disease. TECHNIQUE: 2D digital imaging was performed. COMPARISON: CR XR PORTABLE CHEST AP from 07/07/2019 FINDINGS: LUNGS: Clear. No pleural abnormality seen. HEART: Normal. MEDIASTINUM: Normal. OTHER FINDINGS: None. IMPRESSION: No acute pulmonary findings. DATA REPOSITORY: RADIATION DOSE DELIVERED: Total DLP
[2019-10-27 11:35] VITALS: BP 147/74; PULSE 64; PULSE 66; RESP 16; O2SAT 100
[2019-10-27 11:36] VITALS: PULSE 66; RESP 17; O2SAT 100
[2019-10-27 11:40] VITALS: PULSE 67; RESP 21; O2SAT 100
[2019-10-27 11:50] VITALS: PULSE 70; RESP 21; O2SAT 100
[2019-10-27 12:11] VITALS: TEMP 36.7
== END 2019-10-27 12:20 | disposition home or self-care (01) ==
PROVIDERS: Emergency Provider Physician Assistant; PCP Nurse Practitioner Family
DX: R55 Syncope and collapse (principal)
CPT/HCPCS: 36415; 80053; 93005; 96360; 99285; 71045; 83735; 84484; 85025; 85610; 85730; 93010

== ENCOUNTER 2019-11-17 10:20 | Day surgery (SDC) | payer MEDICARE, BC, SELFPAY ==
[2019-11-17 10:25] VITALS: BP 132/75; PULSE 76; RESP 18; TEMP 36.4; O2SAT 98
[2019-11-17] MEDS: Tropicam./Phenyleph. (1/2.5%) 5 ML BTL OS ×3 (11:01→11:07)
--- NOTE | 2019-11-17 11:35 | W.PM.DSUDISC ---
Discharge Plan Disposition Patient Disposition: HOME Condition: Good Discharge Details Reason For Visit: CATARACT Attending Provider: Wicho Joe Primary Care Provider: Gifty Zabala Home Meds and New Rx's Prescriptions: No Action coenzyme Q10 100 mg capsule 100 mg PO DAILY RF: 0 ivermectin [Soolantra] 30 GM cream 1 applic Topical HS Qty: 30 RF: 0 Discharge Instructions Stand Alone Forms: Post-op Topical Cataract, Carin Matta (DSU) Discharge Orders Discharge Orders: Discharge Order (Routine); Ordered 11/17/19 Ordered By: Wicho Joe DS: Diagnosis Discharge Diagnosis (1) Nuclear sclerotic cataract of left eye: Status: Resolved (2) Cortical cataract of left eye: Status: Resolved
[2019-11-17] MEDS: Tetracaine 0.5% 4 ML BTL OS (11:53)
[2019-11-17] MEDS: Balanced Salt Soln.-PLUS 500 ML BAG (11:53)
[2019-11-17] MEDS: Lidocaine 1% Pres-Free 5 ML VIAL (11:55)
[2019-11-17] MEDS: Lidocaine 2% Jelly 6 ML SYR (11:56)
[2019-11-17] MEDS: Moxifloxacin-PF 1 MG/ML VIAL (11:59)
[2019-11-17] MEDS: Povidone-Iodine Ophth 30 ML BTL (12:01)
--- NOTE | 2019-11-17 12:08 | W.PM.OP ---
Date of service: 11/17/19 Time of Service: 12:08 Operative Note Operative Note DATE OF PROCEDURE: 11/17/19 PRE-OP DIAGNOSIS: Nuclear/cortical cataract, left eye POST-OP DIAGNOSIS: same PROCEDURE: Cataract extraction using phacoemulsification with intraocular lens implant, left eye SURGEON: Wicho Joe ANESTHESIA: MAC and local (sub-tenon's anesthetic infiltration) PATHOLOGY: none sent COMPLICATIONS: None Patient was transported to: same day Patient's condition: stable Implants: [employer] / [employer] Tecnis ZCB00 Indications: Progressive decreased vision due to cataract, left eye Procedure Description: CATARACT SURGERY OPERATIVE REPORT PREOPERATIVE DIAGNOSIS: Nuclear/cortical cataract, left eye POSTOPERATIVE DIAGNOSIS: Same OPERATION: Cataract extraction using phacoemulsification with posterior chamber intraocular lens implant, left eye. 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 Diopters IOL Serial Number: [id number] Optic Diameter: 6.0mm Haptic/Overall Diameter: 13.0mm PHACO INFO: Moo [employer]ckestraurion Vision System with OZil and Active Fluidics Cumulative Dispersed Energy (CDE): 4.91 seconds SURGEON: Wicho Joe MD, CAITLIN ANESTHESIA: Monitored Anesthesia Care (MAC), with local sub-tenon's anesthetic infiltration COMPLICATIONS: None SPECIMENS: None INDICATIONS FOR PROCEDURE: Patient is a 74-year-old lady with history of diminished visual acuity in her left eye secondary to the development of nuclear and cortical cataract. She is scheduled for discharge. PROCEDURE: The correct surgical eye was identified and marked as the left eye and the pupil was dilated in the preoperative area using mydriatics and cycloplegics. The dilated pupil size was 7, round mm. Oral sedation was administered in the form of an Imprimis MKO Melt (midazolam 3mg/ketamine 25mg/ondansetron 2mg). The patient was brought to the operating room where cardiopulmonary monitoring was instituted and surgical time-out was performed, confirming the correct operative eye and IOL power. Topical anesthesia was administered and ophthalmic povidone-iodine 5% was instilled into the conjunctival fornices. Lidocaine gel was applied to the cornea and the brett-ocular area was prepped with Betadine 10% solution and draped in the usual sterile fashion for intraocular surgery, including an aperture drape. A Tegaderm transparent film dressing was cut in half and used to cover the lashes and lid margins. Care was taken to sequester the lashes and lid margins under the Tegaderm dressing. A lid speculum was placed between the lids of the operative eye and the Tatiana-Miles operating microscope was maneuvered into position. Enrike scissors were then used to make a conjunctival buttonhole approximately 6mm posterior to the limbus in the inferonasal quadrant. Blunt dissection was carried out to expose bare sclera, and a blunt-tipped sub-tenon?s anesthesia cannula was introduced and passed posteriorly along the globe where non-preserved plain lidocaine was injected into posterior sub-Tenon?s space. A sideport knife was used to make a paracentesis port superior/superiortemporally. Intraocular phenylephrine/lidocaine was injected into the anterior chamber. The anterior chamber was then filled with Healon Pro. A 2.4mm keratome knife was used to create a half-thickness groove at the limbus and then to construct a three-plane near-clear corneal tunnel extending 2.0mm into clear cornea in the temporal position. . A flap was raised on the anterior capsule and capsulorhexis forceps were used to complete a continuous curvilinear capsulorhexis of 5.5 mm. Balanced salt solution was then used to perform cortical cleaving hydrodissection and nuclear hydrodelineation until the lens could be freely rotated within the capsular bag. The lens nucleus was then disassembled and removed within the capsular bag and iris plane using phacoemulsification. Residual cortical material was removed using the 45-degree angled silicone I/A tip with 0.3mm port. The posterior capsule was carefully polished to remove as much residual lens epithelial cells as safely possible. The capsular bag was then inflated and the anterior chamber deepened with viscoelastic. The lens implant described above was inserted into the capsular bag using the SIDDHARTHA [place] Injector. A Kuglen hook was used to dial the IOL into position. Residual viscoelastic was then removed first from posterior to the IOL, then from the anterior chamber using the I/A handpiece. The lens implant was noted to center nicely within the capsular bag. The incisions were stromally hydrated, and the anterior chamber was reformed using BSS. Then 0.5cc of moxifloxacin 1.0mg/ml were injected into the capsular bag and anterior chamber. The incisions were checked with a Weck spear and found to be secure. Several drops of ophthalmic povidone-iodine 5% were then applied to the eye followed by two drops of Imprimis combination prednisolone/moxifloxacin/nepafenac solution. The drapes were removed and a clear plastic protective eye shield was placed over the eye. The patient was then returned to [facility] Surgery in stable condition.
[2019-11-17 12:34] VITALS: BP 130/83; PULSE 75; RESP 16; TEMP 36.2; O2SAT 100
== END 2019-11-17 12:33 | disposition home or self-care (01) ==
PROVIDERS: PCP Nurse Practitioner Family; Visit Provider Ophthalmology
PROC: (CPT 66984; principal; 2019-11-17 13:30)
DX: H25.12 Age-related nuclear cataract, left eye (principal); I73.00 Raynaud's syndrome without gangrene; E78.5 Hyperlipidemia, unspecified
CPT/HCPCS: 66984; V2632

== ENCOUNTER 2019-12-01 09:25 | Day surgery (SDC) | payer MEDICARE, BC, SELFPAY ==
[2019-12-01 09:25] VITALS: BP 136/77; PULSE 68; RESP 18; TEMP 36.6; O2SAT 98
[2019-12-01] MEDS: Tropicam./Phenyleph. (1/2.5%) 5 ML BTL OD ×3 (09:55→10:05)
[2019-12-01] MEDS: Tetracaine 0.5% 4 ML BTL OD (11:22)
[2019-12-01] MEDS: Balanced Salt Soln.-PLUS 500 ML BAG (11:23)
[2019-12-01] MEDS: Lidocaine 2% Jelly 6 ML SYR (11:24)
[2019-12-01] MEDS: Lidocaine 1% Pres-Free 5 ML VIAL (11:24)
[2019-12-01] MEDS: Moxifloxacin-PF 1 MG/ML VIAL (11:25)
[2019-12-01] MEDS: Povidone-Iodine Ophth 30 ML BTL (11:26)
--- NOTE | 2019-12-01 11:41 | W.PM.DSUDISC ---
Discharge Plan Disposition Patient Disposition: HOME Condition: Good Discharge Details Attending Provider: Wicho Joe Primary Care Provider: Gifty Zabala Home Meds and New Rx's Prescriptions: No Action coenzyme Q10 100 mg capsule 100 mg PO DAILY RF: 0 ivermectin [Soolantra] 30 GM cream 1 applic Topical HS Qty: 30 RF: 0 Discharge Instructions Stand Alone Forms: Post-op Topical Cataract, Carin Matta (DSU) Discharge Orders Discharge Orders: Discharge Order (Routine); Ordered 12/01/19 Ordered By: Wicho Joe DS: Diagnosis Discharge Diagnosis (1) Cortical cataract of right eye: Status: Resolved (2) Nuclear sclerotic cataract of right eye: Status: Resolved
--- NOTE | 2019-12-01 11:42 | W.PM.OP ---
Date of service: 12/01/19 Time of Service: 11:42 Operative Note Operative Note DATE OF PROCEDURE: 12/01/19 PRE-OP DIAGNOSIS: Nuclear cataract, right eye POST-OP DIAGNOSIS: same PROCEDURE: Cataract extraction using phacoemulsification with intraocular lens implant, right eye SURGEON: Wicho Joe ANESTHESIA: MAC and local (sub-tenon's anesthetic infiltration) ESTIMATED BLOOD LOSS: 0 PATHOLOGY: none sent COMPLICATIONS: None Patient was transported to: same day Patient's condition: stable Implants: [employer] / [employer] Tecnis ZCB00 intraocular lens Indications: Progressive decreased vision due to cataract, right eye Procedure Description: CATARACT SURGERY OPERATIVE REPORT PREOPERATIVE DIAGNOSIS: Nuclear/cortical cataract, right POSTOPERATIVE DIAGNOSIS: Same OPERATION: Cataract extraction using phacoemulsification with posterior chamber intraocular lens implant, right eye. 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 She has already undergone cataract surgery. Left eye doing well. With history of cataract. PROCEDURE: The correct surgical eye was identified and marked as the right eye and the pupil was dilated in the preoperative area using mydriatics and cycloplegics. The dilated pupil size was 7.0 mm. Oral sedation was administered in the form of an Imprimis MKO Melt (midazolam 3mg/ketamine 25mg/ondansetron 2mg). The patient was brought to the operating room where cardiopulmonary monitoring was instituted and surgical time-out was performed, confirming the correct operative eye and IOL power. Topical anesthesia was administered and ophthalmic povidone-iodine 5% was instilled into the conjunctival fornices. Lidocaine gel was applied to the cornea and the brett-ocular area was prepped with Betadine 10% solution and draped in the usual sterile fashion for intraocular surgery, including an aperture drape. A Tegaderm transparent film dressing was cut in half and used to cover the lashes and lid margins. Care was taken to sequester the lashes and lid margins under the Tegaderm dressing. A lid speculum was placed between the lids of the operative eye and the Tatiana-Miles operating microscope was maneuvered into position. Enrike scissors were then used to make a conjunctival buttonhole approximately 6mm posterior to the limbus in the inferonasal quadrant. Blunt dissection was carried out to expose bare sclera, and a blunt-tipped sub-tenon?s anesthesia cannula was introduced and passed posteriorly along the globe where non-preserved plain lidocaine was injected into posterior sub-Tenon?s space. A sideport knife was used to make a paracentesis port inferiortemporally. Intraocular phenylephrine/lidocaine was injected into the anterior chamber. The anterior chamber was then filled with Healon Pro. A 2.4mm keratome knife was used to create a half-thickness groove at the limbus and then to construct a three-plane near-clear corneal tunnel extending 2.0mm into clear cornea in the superiortemporal position. . A flap was raised on the anterior capsule and capsulorhexis forceps were used to complete a continuous curvilinear capsulorhexis of 5.0 mm. Balanced salt solution was then used to perform cortical cleaving hydrodissection and nuclear hydrodelineation until the lens could be freely rotated within the capsular bag. The lens nucleus was then disassembled and removed within the capsular bag and iris plane using phacoemulsification. Residual cortical material was removed using the I/A handpiece. The posterior capsule was carefully polished to remove as much residual lens epithelial cells as safely possible. The capsular bag was then inflated and the anterior chamber deepened with viscoelastic. The lens implant described above was inserted into the capsular bag using the SIDDHARTHA [place] Injector. A Kuglen hook was used to dial the IOL into position. Residual viscoelastic was then removed first from posterior to the IOL, then from the anterior chamber using the I/A handpiece. The lens implant was noted to center nicely within the capsular bag. The incisions were stromally hydrated, and the anterior chamber was reformed using BSS. Then 0.5cc of moxifloxacin 1.0mg/ml were injected into the capsular bag and anterior chamber. The incisions were checked with a Weck spear and found to be secure. Several drops of ophthalmic povidone-iodine 5% were then applied to the eye followed by two drops of Imprimis combination prednisolone/moxifloxacin/nepafenac solution. The drapes were removed and a clear plastic protective eye shield was placed over the eye. The patient was then returned to Same Day Surgery in stable condition.
[2019-12-01 12:03] VITALS: BP 140/81; PULSE 81; RESP 16; TEMP 36.2; O2SAT 100
== END 2019-12-01 12:08 | disposition home or self-care (01) ==
PROVIDERS: PCP Nurse Practitioner Family; Visit Provider Ophthalmology
PROC: (CPT 66984; principal; 2019-12-01 12:30)
DX: H25.11 Age-related nuclear cataract, right eye (principal); E78.5 Hyperlipidemia, unspecified; F41.0 Panic disorder [episodic paroxysmal anxiety]
CPT/HCPCS: 66984; V2632

== ENCOUNTER 2020-01-03 13:18 | Outpatient (REF) | payer MEDICARE, BC, SELFPAY | END 2020-01-03 13:38 | LOC: NCHCN 13:18 | PROVIDERS: PCP Nurse Practitioner Family; Visit Provider Physician Assistant | DX: N39.0 Urinary tract infection, site not specified (principal) | CPT/HCPCS: 87086 ==

== ENCOUNTER 2020-06-28 01:23 | Outpatient (CLI) | payer MEDICARE, BC, SELFPAY ==
[2020-06-28 12:39] LABS: Hemoglobin A1C 5.4 % (<5.7)
[2020-06-28 12:55] LABS: ALT 42 U/L (14-59); AST 19 U/L (15-37); Albumin 4.3 g/dL (3.4-5.0); Alkaline Phosphatase 123 U/L (46-116); Anion Gap 6.3 mmol/L (3-11); BUN 14 mg/dL (7-18); Bilirubin, Total 0.9 mg/dL (0.2-1.0); CO2 31.7 mmol/L (21.0-32.0); CREATININE 0.8 mg/dL (0.55-1.02); Calcium 9.4 mg/dL (8.5-10.1); Calculated LDL 136 mg/dL (<100); Chloride 103 mmol/L (98-107); Cholesterol 226 mg/dL (<200); Glucose 86 mg/dL (74-106); HDL Cholesterol 66 mg/dL (40-60); Potassium 4.7 mmol/L (3.5-5.1); Sodium 141 mmol/L (136-145); Total Protein 7.6 g/dL (6.4-8.2); Triglyceride 121 mg/dL (<150)
== END 2020-06-28 01:24 | disposition home or self-care (01) ==
PROVIDERS: PCP Nurse Practitioner Family; Visit Provider Nurse Practitioner Family
DX: E78.5 Hyperlipidemia, unspecified (principal); R73.03 Prediabetes
CPT/HCPCS: 36415; 80053; 80061; 83036